=== PATIENT | male | born 1965 | race Caucasian/White ===

== ENCOUNTER 2017-05-02 11:44 | Day surgery (SDC) | payer OTHER ==
[~2017-05-02] VITALS: Ht 175.3 cm; Wt 90.7 kg
[~2017-05-02 11:44] MED LIST: CHILD ASPIRIN81 M1 PO; ENALAPRIL MALEA20 MG PO; ENDOCET 10-3251 EACH PO; GABAPENTIN300 MG PO; MELOXICAM7.5 MG PO; METHOCARBAMOL750 MG PO; MS CONTIN,ORAMO15 M1 PO; PERCOCET 5/31 TABLET PO; PROMETHAZINE HC25 M1 PO; TOBRAMYCIN SULFA5 ML RIGHT EYE
== END 2017-05-02 13:43 | disposition home or self-care (01) ==
LOC: PAIN 11:44 → SDC 12:30 → PAIN 13:43
DX: M47.26 Other spondylosis with radiculopathy, lumbar region (principal); M51.16 Intervertebral disc disorders with radiculopathy, lumbar region; M54.5 Low back pain; G89.29 Other chronic pain; I10 Essential (primary) hypertension; G47.33 Obstructive sleep apnea (adult) (pediatric); M96.1 Postlaminectomy syndrome, not elsewhere classified; M48.06 Spinal stenosis, lumbar region; Z79.891 Long term (current) use of opiate analgesic; F17.200 Nicotine dependence, unspecified, uncomplicated
CPT/HCPCS: J1100; J2250; J3010

== ENCOUNTER 2017-06-24 07:29 | Day surgery (SDC) | payer OTHER ==
[~2017-06-24] VITALS: Ht 175.3 cm; Wt 77.1 kg
== END 2017-06-24 09:17 | disposition home or self-care (01) ==
LOC: PAIN 07:29
DX: M47.26 Other spondylosis with radiculopathy, lumbar region (principal); M54.5 Low back pain; G89.29 Other chronic pain; M48.061 Spinal stenosis, lumbar region without neurogenic claudication; M96.1 Postlaminectomy syndrome, not elsewhere classified; M65.4 Radial styloid tenosynovitis [de Quervain]; I10 Essential (primary) hypertension; G47.33 Obstructive sleep apnea (adult) (pediatric); F17.200 Nicotine dependence, unspecified, uncomplicated; Z79.891 Long term (current) use of opiate analgesic
CPT/HCPCS: J1100; J1885; J2250; J3010